=== PATIENT | female | born 1960 | race Caucasian/White ===

== ENCOUNTER 2021-10-25 18:57 | Inpatient (IN) ==
[2021-10-25 20:24] LABS: Basophils # 0.1 K/mcL (0.0-0.2); Basophils % 0.5 %; Eosinophils # 0.2 K/mcL (0.0-0.6); Eosinophils % 2.3 %; Hematocrit 32.2 % (35.3-44.9); Hemoglobin 10.1 g/dL (11.5-15.4); Immature Granulocytes % 0.6 % (0-4); Lymphocytes # 1.4 K/mcL (0.6-4.6); Lymphocytes % 13.4 %; Mean Corpuscular HGB Conc 31.4 g/dL (31.6-35.5); Mean Corpuscular Hemoglobin 29.3 pg (28.0-33.3); Mean Corpuscular Volume 93.3 fL (83.0-100.0); Mean Platelet Volume 9.8 fL (9.4-12.4); Monocytes # 0.6 K/mcL (0.0-1.3); Monocytes % 5.5 %; Neutrophils # 7.8 K/mcL (1.6-8.9); Platelet Count 277 K/mcL (140-400); Red Blood Count 3.45 M/mcL (3.82-4.97); Red Cell Distribution Width 15.5 % (11.5-14.5); Segmented Neutrophils % 77.7 %; White Blood Count 10.1 K/mcL (4.3-11.1)
[2021-10-25 20:37] LABS: Bilirubin,Urine Negative (Negative); Blood,Urine Negative (Negative); Clarity,Urine Clear (Clear); Color,Urine Yellow (Yellow); Glucose,Urine (UA) Normal (Normal); Ketones,Urine Negative (Negative); Leukocyte Esterase,Urine Negative (Negative); Nitrite,Urine Negative (Negative); PH,Urine 5.5 pH Units (5.0-8.0); Protein,Urine Negative (Neg-Trace); Urobilinogen,Urine Normal (Normal)
[2021-10-25 20:39] LABS: INR 1.4; Prothrombin Time 15.1 Seconds (9.4-12.1)
[2021-10-25 20:42] LABS: Activated Partial Thrombo Time 37.1 Seconds (26.0-36.0)
[2021-10-25 20:51] LABS: Troponin I < 0.03 ng/mL (< 0.04)
[2021-10-25 21:05] LABS: Alanine Aminotransferase 7 Units/L (7-52); Albumin 3.5 g/dL (3.5-5.7); Albumin/Globulin Ratio 1.3 (1.1-2.2); Alkaline Phosphatase 84 Units/L (34-104); Aspartate Amino Transferase 10 Units/L (13-39); BUN/Creatinine Ratio 20 (6-26); Bilirubin,Total 0.3 mg/dL (0.3-1.0); Blood Urea Nitrogen 22 mg/dL (8-23); Calcium 8.7 mg/dL (8.6-10.3); Carbon Dioxide 24 mEq/L (23-29); Chloride 105 mEq/L (98-107); Globulin 2.6 g/dL (2.4-3.5); Glucose 122 mg/dL (70-105); Magnesium 1.7 mg/dL (1.6-2.6); Osmolality,Calculated 289 (280-300); Phosphorous 3.5 mg/dL (2.7-4.5); Sodium 137 mEq/L (136-145); Total Protein 6.1 g/dL (6.4-8.9); eGFR For African Americans > 60 (> 60); eGFR For Non-African Americans 51 (> 60)
[2021-10-25] MEDS ORDERED: levoFLOXacin 750 MG/150 ML 750 MG/150 ML BAG IVPB SCH (21:40)
[2021-10-25] MEDS: 0.9 % Sodium Chloride 1,000 ML IVC SCH (21:49)
[2021-10-25] MEDS ORDERED: Naloxone 0.4 MG/ML INJ IVP PRN (22:48)
[2021-10-25] MEDS ORDERED: Fluticasone Propionate Nasal 50 MCG/SPRAY BOTTLE NS PRN (22:48)
[2021-10-25] MEDS ORDERED: 0.9 % Sodium Chloride 1,000 ML IVC SCH (22:48)
[2021-10-25] MEDS ORDERED: Nitroglycerin 0.4 MG TAB.SUBL SL PRN (22:48)
[2021-10-25] MEDS ORDERED: Loratadine 10 MG TABLET PO PRN (22:48)
[2021-10-25] MEDS: Acetaminophen 325 MG TABLET PO PRN (23:54)
[2021-10-25] MEDS: Ranolazine 500 MG TAB.ER.12H PO SCH (23:54)
[2021-10-25] MEDS: Isosorbide MONOnitrate (24 HR) 60 MG TAB.ER.24H PO SCH (23:55)
[2021-10-25] MEDS: levoFLOXacin 750 MG/150 ML 750 MG/150 ML BAG IVPB SCH (23:58)
[2021-10-26] MEDS: Ipratropium/Albuterol Neb 3 ML IH SCH ×2 (01:20→08:01)
[2021-10-26] MEDS: 0.9 % Sodium Chloride 1,000 ML IVC SCH (03:32)
[2021-10-26 07:00] LABS: Basophils % 0.5 %; Eosinophils # 0.3 K/mcL (0.0-0.6); Eosinophils % 3.2 %; Hematocrit 32.6 % (35.3-44.9); Hemoglobin 10.2 g/dL (11.5-15.4); Immature Granulocytes % 0.6 % (0-4); Lymphocytes # 1.2 K/mcL (0.6-4.6); Lymphocytes % 15.4 %; Mean Corpuscular HGB Conc 31.3 g/dL (31.6-35.5); Mean Corpuscular Hemoglobin 29.1 pg (28.0-33.3); Mean Corpuscular Volume 92.9 fL (83.0-100.0); Mean Platelet Volume 10.5 fL (9.4-12.4); Monocytes # 0.5 K/mcL (0.0-1.3); Monocytes % 6.4 %; Neutrophils # 5.8 K/mcL (1.6-8.9); Platelet Count 280 K/mcL (140-400); Red Blood Count 3.51 M/mcL (3.82-4.97); Red Cell Distribution Width 15.6 % (11.5-14.5); Segmented Neutrophils % 73.9 %; White Blood Count 7.9 K/mcL (4.3-11.1)
[2021-10-26 07:17] LABS: BUN/Creatinine Ratio 19 (6-26); Blood Urea Nitrogen 17 mg/dL (8-23); Calcium 8.5 mg/dL (8.6-10.3); Carbon Dioxide 24 mEq/L (23-29); Chloride 108 mEq/L (98-107); Glucose 89 mg/dL (70-105); Osmolality,Calculated 291 (280-300); Potassium 4.1 mEq/L (3.5-5.1); Sodium 140 mEq/L (136-145); eGFR For African Americans > 60 (> 60); eGFR For Non-African Americans > 60 (> 60)
[2021-10-26] MEDS ORDERED: Furosemide 20 MG TABLET PO SCH (09:00)
[2021-10-26] MEDS ORDERED: allopurinoL 100 MG TABLET PO SCH (09:00)
[2021-10-26] MEDS ORDERED: BuPROPion XL (24 HR) 150 MG TABLET PO SCH (09:00)
[2021-10-26] MEDS: Cyanocobalamin (B-12) 1,000 MCG TABLET PO SCH (09:35)
[2021-10-26] MEDS: FLUoxetine 20 MG CAPSULE PO SCH (09:36)
[2021-10-26] MEDS: Ranolazine 500 MG TAB.ER.12H PO SCH ×2 (09:36→20:03)
[2021-10-26] MEDS: Isosorbide MONOnitrate (24 HR) 60 MG TAB.ER.24H PO SCH ×2 (09:36→20:03)
[2021-10-26] MEDS: Ascorbic Acid 500 MG TABLET PO SCH (09:36)
[2021-10-26] MEDS: Aspirin 81 MG TAB.CHEW PO SCH (09:36)
[2021-10-26] MEDS: Acetaminophen 325 MG TABLET PO PRN (09:36)
[2021-10-26] MEDS: levoFLOXacin 750 MG/150 ML 750 MG/150 ML BAG IVPB SCH ×2 (10:02→21:57)
[2021-10-26] MEDS: Metoprolol XL (24 HR) Succ 50 MG TAB.ER.24H PO SCH (12:49)
[2021-10-26] MEDS ORDERED: levoFLOXacin 750 MG/150 ML 750 MG/150 ML BAG IVPB SCH (13:00)
[2021-10-26] MEDS: *HR* Rivaroxaban 10 MG TABLET PO SCH (16:24)
[2021-10-26] MEDS: Furosemide 20 MG TABLET PO SCH (16:24)
[2021-10-27] MEDS: Acetaminophen 325 MG TABLET PO PRN (03:10)
[2021-10-27 07:22] LABS: Basophils # 0.1 K/mcL (0.0-0.2); Basophils % 0.8 %; Eosinophils # 0.2 K/mcL (0.0-0.6); Eosinophils % 2.9 %; Hematocrit 32.9 % (35.3-44.9); Hemoglobin 10.4 g/dL (11.5-15.4); Immature Granulocytes % 0.7 % (0-4); Lymphocytes # 1.3 K/mcL (0.6-4.6); Lymphocytes % 17.7 %; Mean Corpuscular HGB Conc 31.6 g/dL (31.6-35.5); Mean Corpuscular Hemoglobin 29.2 pg (28.0-33.3); Mean Corpuscular Volume 92.4 fL (83.0-100.0); Mean Platelet Volume 10.4 fL (9.4-12.4); Monocytes # 0.5 K/mcL (0.0-1.3); Monocytes % 7.4 %; Platelet Count 281 K/mcL (140-400); Red Blood Count 3.56 M/mcL (3.82-4.97); Red Cell Distribution Width 15.4 % (11.5-14.5); Segmented Neutrophils % 70.5 %; White Blood Count 7.2 K/mcL (4.3-11.1)
[2021-10-27 08:12] LABS: BUN/Creatinine Ratio 17 (6-26); Blood Urea Nitrogen 15 mg/dL (8-23); Calcium 8.8 mg/dL (8.6-10.3); Carbon Dioxide 26 mEq/L (23-29); Chloride 106 mEq/L (98-107); Glucose 84 mg/dL (70-105); Magnesium 1.8 mg/dL (1.6-2.6); Osmolality,Calculated 288 (280-300); Potassium 4.1 mEq/L (3.5-5.1); Sodium 139 mEq/L (136-145); eGFR For African Americans > 60 (> 60); eGFR For Non-African Americans > 60 (> 60)
[2021-10-27] MEDS: Ascorbic Acid 500 MG TABLET PO SCH (10:37)
[2021-10-27] MEDS: Isosorbide MONOnitrate (24 HR) 60 MG TAB.ER.24H PO SCH ×2 (10:38→20:14)
[2021-10-27] MEDS: FLUoxetine 20 MG CAPSULE PO SCH (10:38)
[2021-10-27] MEDS: Ranolazine 500 MG TAB.ER.12H PO SCH ×2 (10:38→20:14)
[2021-10-27] MEDS: Aspirin 81 MG TAB.CHEW PO SCH (10:38)
[2021-10-27] MEDS: Furosemide 20 MG TABLET PO SCH ×2 (10:39→17:31)
[2021-10-27] MEDS: Metoprolol XL (24 HR) Succ 50 MG TAB.ER.24H PO SCH (10:39)
[2021-10-27] MEDS: Cyanocobalamin (B-12) 1,000 MCG TABLET PO SCH (10:39)
[2021-10-27] MEDS: *HR* Rivaroxaban 10 MG TABLET PO SCH (17:31)
[2021-10-27] MEDS: levoFLOXacin 750 MG/150 ML 750 MG/150 ML BAG IVPB SCH (21:49)
[2021-10-28 08:15] LABS: Basophils # 0.1 K/mcL (0.0-0.2); Basophils % 0.6 %; Eosinophils # 0.2 K/mcL (0.0-0.6); Eosinophils % 2.3 %; Hematocrit 39.2 % (35.3-44.9); Hemoglobin 12.2 g/dL (11.5-15.4); Immature Granulocytes % 0.5 % (0-4); Lymphocytes # 1.3 K/mcL (0.6-4.6); Lymphocytes % 16.6 %; Mean Corpuscular HGB Conc 31.1 g/dL (31.6-35.5); Mean Corpuscular Hemoglobin 29.1 pg (28.0-33.3); Mean Corpuscular Volume 93.6 fL (83.0-100.0); Mean Platelet Volume 10.3 fL (9.4-12.4); Monocytes # 0.5 K/mcL (0.0-1.3); Monocytes % 5.8 %; Neutrophils # 5.8 K/mcL (1.6-8.9); Platelet Count 300 K/mcL (140-400); Red Blood Count 4.19 M/mcL (3.82-4.97); Red Cell Distribution Width 15.2 % (11.5-14.5); Segmented Neutrophils % 74.2 %; White Blood Count 7.8 K/mcL (4.3-11.1)
[2021-10-28 08:52] LABS: BUN/Creatinine Ratio 16 (6-26); Blood Urea Nitrogen 14 mg/dL (8-23); Calcium 9.2 mg/dL (8.6-10.3); Carbon Dioxide 27 mEq/L (23-29); Chloride 103 mEq/L (98-107); Glucose 95 mg/dL (70-105); Osmolality,Calculated 286 (280-300); Sodium 138 mEq/L (136-145); eGFR For African Americans > 60 (> 60); eGFR For Non-African Americans > 60 (> 60)
[2021-10-28] MEDS: Cyanocobalamin (B-12) 1,000 MCG TABLET PO SCH (10:25)
[2021-10-28] MEDS: Metoprolol XL (24 HR) Succ 50 MG TAB.ER.24H PO SCH (10:25)
[2021-10-28] MEDS: FLUoxetine 20 MG CAPSULE PO SCH (10:25)
[2021-10-28] MEDS: Furosemide 20 MG TABLET PO SCH ×2 (10:25→17:57)
[2021-10-28] MEDS: Isosorbide MONOnitrate (24 HR) 60 MG TAB.ER.24H PO SCH ×2 (10:26→22:38)
[2021-10-28] MEDS: Ascorbic Acid 500 MG TABLET PO SCH (10:26)
[2021-10-28] MEDS: Ranolazine 500 MG TAB.ER.12H PO SCH ×2 (10:26→22:37)
[2021-10-28] MEDS: Aspirin 81 MG TAB.CHEW PO SCH (10:26)
[2021-10-28] MEDS: Acetaminophen 325 MG TABLET PO PRN (11:47)
[2021-10-28] MEDS: *HR* Rivaroxaban 10 MG TABLET PO SCH (17:57)
[2021-10-29] MEDS: levoFLOXacin 750 MG/150 ML 750 MG/150 ML BAG IVPB SCH (01:27)
[2021-10-29 07:41] LABS: Basophils % 0.6 %; Eosinophils # 0.2 K/mcL (0.0-0.6); Eosinophils % 2.6 %; Hemoglobin 10.9 g/dL (11.5-15.4); Immature Granulocytes % 0.8 % (0-4); Lymphocytes # 1.1 K/mcL (0.6-4.6); Lymphocytes % 16.5 %; Mean Corpuscular HGB Conc 31.1 g/dL (31.6-35.5); Mean Corpuscular Hemoglobin 28.8 pg (28.0-33.3); Mean Corpuscular Volume 92.3 fL (83.0-100.0); Mean Platelet Volume 10.3 fL (9.4-12.4); Monocytes # 0.5 K/mcL (0.0-1.3); Monocytes % 7.9 %; Neutrophils # 4.6 K/mcL (1.6-8.9); Platelet Count 259 K/mcL (140-400); Red Blood Count 3.79 M/mcL (3.82-4.97); Red Cell Distribution Width 15.1 % (11.5-14.5); Segmented Neutrophils % 71.6 %; White Blood Count 6.5 K/mcL (4.3-11.1)
[2021-10-29 07:53] LABS: BUN/Creatinine Ratio 21 (6-26); Blood Urea Nitrogen 17 mg/dL (8-23); Calcium 8.7 mg/dL (8.6-10.3); Carbon Dioxide 28 mEq/L (23-29); Chloride 104 mEq/L (98-107); Glucose 97 mg/dL (70-105); Osmolality,Calculated 289 (280-300); Potassium 3.8 mEq/L (3.5-5.1); Sodium 139 mEq/L (136-145); eGFR For African Americans > 60 (> 60); eGFR For Non-African Americans > 60 (> 60)
[2021-10-29] MEDS: Furosemide 20 MG TABLET PO SCH ×2 (08:38→15:58)
[2021-10-29] MEDS: Doxycycline 100 MG CAPSULE PO SCH ×2 (08:38→20:47)
[2021-10-29] MEDS: Ascorbic Acid 500 MG TABLET PO SCH (08:39)
[2021-10-29] MEDS: Cyanocobalamin (B-12) 1,000 MCG TABLET PO SCH (08:39)
[2021-10-29] MEDS: Aspirin 81 MG TAB.CHEW PO SCH (08:39)
[2021-10-29] MEDS: Acetaminophen 325 MG TABLET PO PRN ×2 (08:39→15:58)
[2021-10-29] MEDS: Metoprolol XL (24 HR) Succ 50 MG TAB.ER.24H PO SCH (08:40)
[2021-10-29] MEDS: Ranolazine 500 MG TAB.ER.12H PO SCH ×2 (08:40→20:48)
[2021-10-29] MEDS: Isosorbide MONOnitrate (24 HR) 60 MG TAB.ER.24H PO SCH ×2 (08:40→20:47)
[2021-10-29] MEDS: FLUoxetine 20 MG CAPSULE PO SCH (08:41)
[2021-10-29] MEDS ORDERED: Ergocalciferol (VIT D2) 50,000 UNIT (1.25MG) CAP PO SCH (09:00)
[2021-10-29] MEDS ORDERED: Lactobacillus 1 EACH CAP.SPRINK PO SCH (09:00)
[2021-10-29] MEDS: *HR* Rivaroxaban 10 MG TABLET PO SCH (15:58)
[2021-10-29 18:52] VITALS: BP 118/71; PULSE 69; TEMP 98
[2021-10-29 21:46] VITALS: RESP 16; O2SAT 95
== END 2021-10-29 11:40 | disposition other institution (70) | DRG 603 ==
LOC: INPPIK 18:57 → EMEROOPIK 18:57 → INPPIK 22:30
PROVIDERS: ADMIT Student in an Organized Health Care Education/Training Program; ATTEND Family Medicine

== ENCOUNTER 2021-10-29 22:13 | Observation (INO) ==
[2021-10-29] MEDS ORDERED: Nitroglycerin 0.4 MG TAB.SUBL SL PRN (22:24)
[2021-10-29] MEDS ORDERED: Albuterol 2.5 MG/3 ML NEBULIZER IH PRN (22:24)
[2021-10-29] MEDS ORDERED: Fluticasone Propionate Nasal 50 MCG/SPRAY BOTTLE NS PRN (22:24)
[2021-10-29] MEDS ORDERED: Loratadine 10 MG TABLET PO PRN (22:24)
[2021-10-30 07:19] LABS: Basophils # 0.1 K/mcL (0.0-0.2); Basophils % 0.9 %; Eosinophils # 0.2 K/mcL (0.0-0.6); Eosinophils % 3.1 %; Hemoglobin 10.7 g/dL (11.5-15.4); Immature Granulocytes % 0.5 % (0-4); Lymphocytes # 1.1 K/mcL (0.6-4.6); Lymphocytes % 18.8 %; Mean Corpuscular HGB Conc 30.6 g/dL (31.6-35.5); Mean Corpuscular Hemoglobin 28.6 pg (28.0-33.3); Mean Corpuscular Volume 93.6 fL (83.0-100.0); Mean Platelet Volume 10.4 fL (9.4-12.4); Monocytes # 0.5 K/mcL (0.0-1.3); Monocytes % 8.8 %; Neutrophils # 3.9 K/mcL (1.6-8.9); Platelet Count 237 K/mcL (140-400); Red Blood Count 3.74 M/mcL (3.82-4.97); Red Cell Distribution Width 15.1 % (11.5-14.5); Segmented Neutrophils % 67.9 %; White Blood Count 5.8 K/mcL (4.3-11.1)
[2021-10-30 07:45] LABS: BUN/Creatinine Ratio 23 (6-26); Blood Urea Nitrogen 18 mg/dL (8-23); Calcium 8.7 mg/dL (8.6-10.3); Carbon Dioxide 28 mEq/L (23-29); Chloride 106 mEq/L (98-107); Glucose 98 mg/dL (70-105); Osmolality,Calculated 292 (280-300); Potassium 4.1 mEq/L (3.5-5.1); Sodium 140 mEq/L (136-145); eGFR For African Americans > 60 (> 60); eGFR For Non-African Americans > 60 (> 60)
[2021-10-30] MEDS: Budesonide/Formoterol 160/4.5 1 PUFF INH IH SCH ×2 (08:37→21:07)
[2021-10-30] MEDS: Furosemide 20 MG TABLET PO SCH (09:54)
[2021-10-30] MEDS: Metoprolol XL (24 HR) Succ 50 MG TAB.ER.24H PO SCH (09:54)
[2021-10-30] MEDS: DilTIAZem CD (24hr) 120 MG CAP.ER.24H PO SCH (09:54)
[2021-10-30] MEDS: Isosorbide MONOnitrate (24 HR) 60 MG TAB.ER.24H PO SCH ×2 (09:54→20:35)
[2021-10-30] MEDS: FLUoxetine 20 MG CAPSULE PO SCH (09:54)
[2021-10-30] MEDS: Aspirin 81 MG TAB.CHEW PO SCH (09:54)
[2021-10-30] MEDS: Ranolazine 500 MG TAB.ER.12H PO SCH ×2 (09:54→20:34)
[2021-10-30] MEDS: Doxycycline 100 MG CAPSULE PO SCH ×2 (09:55→20:34)
[2021-10-30] MEDS: Ascorbic Acid 500 MG TABLET PO SCH (09:55)
[2021-10-30] MEDS: Cyanocobalamin (B-12) 1,000 MCG TABLET PO SCH (09:55)
[2021-10-30] MEDS: *HR* Rivaroxaban 10 MG TABLET PO SCH (17:00)
[2021-10-31] MEDS: Metoprolol XL (24 HR) Succ 50 MG TAB.ER.24H PO SCH (08:26)
[2021-10-31] MEDS: Isosorbide MONOnitrate (24 HR) 60 MG TAB.ER.24H PO SCH ×2 (08:26→21:45)
[2021-10-31] MEDS: Aspirin 81 MG TAB.CHEW PO SCH (08:26)
[2021-10-31] MEDS: Ranolazine 500 MG TAB.ER.12H PO SCH ×2 (08:26→21:45)
[2021-10-31] MEDS: FLUoxetine 20 MG CAPSULE PO SCH (08:26)
[2021-10-31] MEDS: DilTIAZem CD (24hr) 120 MG CAP.ER.24H PO SCH (08:26)
[2021-10-31] MEDS: Cyanocobalamin (B-12) 1,000 MCG TABLET PO SCH (08:26)
[2021-10-31] MEDS: Ascorbic Acid 500 MG TABLET PO SCH (08:26)
[2021-10-31] MEDS: Furosemide 20 MG TABLET PO SCH (08:27)
[2021-10-31] MEDS: Doxycycline 100 MG CAPSULE PO SCH ×2 (08:27→21:44)
[2021-10-31] MEDS ORDERED: Acetaminophen 325 MG TABLET PO PRN (08:35)
[2021-10-31] MEDS: Budesonide/Formoterol 160/4.5 1 PUFF INH IH SCH ×2 (08:45→20:52)
[2021-10-31] MEDS ORDERED: Ergocalciferol (VIT D2) 50,000 UNIT (1.25MG) CAP PO SCH (09:00)
[2021-10-31] MEDS ORDERED: Ondansetron ODT 4 MG TAB.RAPDIS SL PRN (14:46)
[2021-10-31] MEDS: *HR* Rivaroxaban 10 MG TABLET PO SCH (16:02)
[2021-11-01 07:00] VITALS: BP 136/78; PULSE 73; RESP 18; TEMP 97.6
[2021-11-01] MEDS ORDERED: cephALEXin 500 MG CAPSULE PO ONE (08:04)
[2021-11-01] MEDS: Budesonide/Formoterol 160/4.5 1 PUFF INH IH SCH (08:18)
[2021-11-01 08:20] VITALS: O2SAT 98
[2021-11-01] MEDS: FLUoxetine 20 MG CAPSULE PO SCH (08:39)
[2021-11-01] MEDS: Cyanocobalamin (B-12) 1,000 MCG TABLET PO SCH (08:39)
[2021-11-01] MEDS: Furosemide 20 MG TABLET PO SCH (08:39)
[2021-11-01] MEDS: Aspirin 81 MG TAB.CHEW PO SCH (08:39)
[2021-11-01] MEDS: Metoprolol XL (24 HR) Succ 50 MG TAB.ER.24H PO SCH (08:39)
[2021-11-01] MEDS: Ascorbic Acid 500 MG TABLET PO SCH (08:39)
[2021-11-01] MEDS: Ranolazine 500 MG TAB.ER.12H PO SCH (08:39)
[2021-11-01] MEDS: DilTIAZem CD (24hr) 120 MG CAP.ER.24H PO SCH (08:39)
[2021-11-01] MEDS: Doxycycline 100 MG CAPSULE PO SCH (08:39)
[2021-11-01] MEDS: Isosorbide MONOnitrate (24 HR) 60 MG TAB.ER.24H PO SCH (08:39)
== END 2021-11-01 13:11 | disposition home health service (06) ==
LOC: INPPIK
PROVIDERS: ADMIT Family Medicine; ATTEND Family Medicine

== ENCOUNTER 2022-01-20 18:17 | Inpatient (IN) ==
[2022-01-20 19:23] LABS: Eosinophils # 0.4 K/mcL (0.0-0.6); Hemoglobin 9.6 g/dL (11.5-15.4); Mean Corpuscular Hemoglobin 29.5 pg (28.0-33.3); Mean Corpuscular Volume 95.4 fL (83.0-100.0); Mean Platelet Volume 10.2 fL (9.4-12.4); Platelet Count 449 K/mcL (140-400); Red Blood Count 3.25 M/mcL (3.82-4.97); Red Cell Distribution Width 16.1 % (11.5-14.5); White Blood Count 10.7 K/mcL (4.3-11.1)
[2022-01-20 19:41] LABS: Calcium 8.8 mg/dL (8.6-10.3)
[2022-01-20 19:53] LABS: Lymphocytes # 2.4 K/mcL (0.6-4.6); Monocytes # 0.4 K/mcL (0.0-1.3); Neutrophils # 7.1 K/mcL (1.6-8.9); Platelet Estimate Increased (Normal)
[2022-01-20 19:55] LABS: Anisocytosis 1+ (Not Present); Toxic Vacuolation Present (Not Present)
[2022-01-20] MEDS ORDERED: Cefepime HCl 1,000 MG in 0.9 % Sodium Chloride 10 ML IVP SCH (20:29)
[2022-01-20] MEDS ORDERED: *HR* HYDROmorphone (PF) 1 MG/ML SYRINGE IVP ONE (21:08)
[2022-01-20] MEDS ORDERED: Ondansetron ODT 4 MG TAB.RAPDIS SL PRN (23:57)
[2022-01-20] MEDS ORDERED: Nitroglycerin 0.4 MG TAB.SUBL SL PRN (23:57)
[2022-01-20] MEDS ORDERED: Naloxone 0.4 MG/ML INJ IVP PRN (23:57)
[2022-01-21] MEDS: Cefepime HCl 1,000 MG in 0.9 % Sodium Chloride 10 ML IVP SCH ×3 (06:50→21:44)
[2022-01-21 06:52] LABS: Basophils # 0.1 K/mcL (0.0-0.2); Basophils % 0.5 %; Eosinophils # 0.4 K/mcL (0.0-0.6); Eosinophils % 3.9 %; Hematocrit 27.9 % (35.3-44.9); Hemoglobin 8.7 g/dL (11.5-15.4); Immature Granulocytes % 4.3 % (0-4); Lymphocytes # 1.5 K/mcL (0.6-4.6); Lymphocytes % 16.7 %; Mean Corpuscular HGB Conc 31.2 g/dL (31.6-35.5); Mean Corpuscular Hemoglobin 29.4 pg (28.0-33.3); Mean Corpuscular Volume 94.3 fL (83.0-100.0); Monocytes # 0.5 K/mcL (0.0-1.3); Monocytes % 5.9 %; Neutrophils # 6.3 K/mcL (1.6-8.9); Platelet Count 442 K/mcL (140-400); Red Blood Count 2.96 M/mcL (3.82-4.97); Segmented Neutrophils % 68.7 %; White Blood Count 9.2 K/mcL (4.3-11.1)
[2022-01-21 07:19] LABS: BUN/Creatinine Ratio 16 (6-26); Blood Urea Nitrogen 12 mg/dL (8-23); Calcium 8.6 mg/dL (8.6-10.3); Carbon Dioxide 28 mEq/L (23-29); Chloride 104 mEq/L (98-107); Chol/HDL Ratio 6.3 (0-4.9); Cholesterol 190 mg/dL (< 200); Glucose 88 mg/dL (70-105); HDL Cholesterol 30 mg/dL (40-59); LDL Cholesterol,Calculated 127 mg/dL (< 100); Osmolality,Calculated 287 (280-300); Potassium 4.1 mEq/L (3.5-5.1); Sodium 139 mEq/L (136-145); Triglycerides 167 mg/dL (< 150)
[2022-01-21] MEDS: Budesonide/Formoterol 160/4.5 1 PUFF INH IH SCH ×2 (08:56→20:49)
[2022-01-21] MEDS ORDERED: Furosemide 20 MG TABLET PO SCH ×2 (09:00→17:00)
[2022-01-21] MEDS: Isosorbide MONOnitrate (24 HR) 60 MG TAB.ER.24H PO SCH ×2 (10:40→20:01)
[2022-01-21] MEDS: *HR* Rivaroxaban 10 MG TABLET PO SCH (10:41)
[2022-01-21] MEDS: FLUoxetine 20 MG CAPSULE PO SCH (10:41)
[2022-01-21] MEDS: Ranolazine 500 MG TAB.ER.12H PO SCH ×2 (10:41→20:01)
[2022-01-21] MEDS: Aspirin 81 MG TAB.CHEW PO SCH (10:41)
[2022-01-21] MEDS: DilTIAZem CD (24hr) 120 MG CAP.ER.24H PO SCH (10:41)
[2022-01-21] MEDS: Metoprolol XL (24 HR) Succ 50 MG TAB.ER.24H PO SCH (10:41)
[2022-01-21] MEDS: Furosemide 20 MG TABLET PO SCH ×2 (10:54→17:34)
[2022-01-21 11:36] LABS: Uric Acid 7.1 mg/dL (2.3-7.6)
[2022-01-21] MEDS: Acetaminophen 325 MG TABLET PO PRN (18:52)
[2022-01-22] MEDS ORDERED: Albuterol 2.5 MG/3 ML NEBULIZER IH PRN (02:00)
[2022-01-22] MEDS: Cefepime HCl 1,000 MG in 0.9 % Sodium Chloride 10 ML IVP SCH ×3 (05:38→21:09)
[2022-01-22 07:20] LABS: Basophils # 0.1 K/mcL (0.0-0.2); Basophils % 0.6 %; Eosinophils # 0.3 K/mcL (0.0-0.6); Eosinophils % 2.9 %; Hematocrit 27.7 % (35.3-44.9); Hemoglobin 8.5 g/dL (11.5-15.4); Immature Granulocytes % 2.8 % (0-4); Lymphocytes # 1.6 K/mcL (0.6-4.6); Lymphocytes % 17.2 %; Mean Corpuscular HGB Conc 30.7 g/dL (31.6-35.5); Mean Corpuscular Volume 94.5 fL (83.0-100.0); Mean Platelet Volume 10.2 fL (9.4-12.4); Monocytes # 0.6 K/mcL (0.0-1.3); Monocytes % 6.5 %; Neutrophils # 6.4 K/mcL (1.6-8.9); Platelet Count 441 K/mcL (140-400); Red Blood Count 2.93 M/mcL (3.82-4.97); Red Cell Distribution Width 16.4 % (11.5-14.5); White Blood Count 9.1 K/mcL (4.3-11.1)
[2022-01-22 07:31] LABS: Calcium 8.8 mg/dL (8.6-10.3); Potassium 4.4 mEq/L (3.5-5.1)
[2022-01-22] MEDS: FLUoxetine 20 MG CAPSULE PO SCH (08:29)
[2022-01-22] MEDS: DilTIAZem CD (24hr) 120 MG CAP.ER.24H PO SCH (08:30)
[2022-01-22] MEDS: *HR* Rivaroxaban 10 MG TABLET PO SCH (08:30)
[2022-01-22] MEDS: Isosorbide MONOnitrate (24 HR) 60 MG TAB.ER.24H PO SCH ×2 (08:30→21:09)
[2022-01-22] MEDS: Aspirin 81 MG TAB.CHEW PO SCH (08:30)
[2022-01-22] MEDS: Furosemide 20 MG TABLET PO SCH ×2 (08:30→19:19)
[2022-01-22] MEDS: Metoprolol XL (24 HR) Succ 50 MG TAB.ER.24H PO SCH (08:30)
[2022-01-22] MEDS: Ranolazine 500 MG TAB.ER.12H PO SCH ×2 (08:31→21:08)
[2022-01-22] MEDS: Budesonide/Formoterol 160/4.5 1 PUFF INH IH SCH ×2 (09:36→21:39)
[2022-01-22] MEDS: Acetaminophen 325 MG TABLET PO PRN (14:10)
[2022-01-23] MEDS: Cefepime HCl 1,000 MG in 0.9 % Sodium Chloride 10 ML IVP SCH ×3 (05:24→23:29)
[2022-01-23] MEDS: Furosemide 20 MG TABLET PO SCH ×2 (08:56→16:04)
[2022-01-23] MEDS: Metoprolol XL (24 HR) Succ 50 MG TAB.ER.24H PO SCH (08:56)
[2022-01-23] MEDS: DilTIAZem CD (24hr) 120 MG CAP.ER.24H PO SCH (08:56)
[2022-01-23] MEDS: FLUoxetine 20 MG CAPSULE PO SCH (08:56)
[2022-01-23] MEDS: Isosorbide MONOnitrate (24 HR) 60 MG TAB.ER.24H PO SCH ×2 (08:56→20:41)
[2022-01-23] MEDS: Aspirin 81 MG TAB.CHEW PO SCH (08:56)
[2022-01-23] MEDS: Ranolazine 500 MG TAB.ER.12H PO SCH ×2 (08:57→20:41)
[2022-01-23] MEDS: *HR* Rivaroxaban 10 MG TABLET PO SCH (08:57)
[2022-01-23] MEDS: Budesonide/Formoterol 160/4.5 1 PUFF INH IH SCH ×2 (09:11→19:59)
[2022-01-24] MEDS: Cefepime HCl 1,000 MG in 0.9 % Sodium Chloride 10 ML IVP SCH ×3 (07:35→20:20)
[2022-01-24] MEDS: Metoprolol XL (24 HR) Succ 50 MG TAB.ER.24H PO SCH (09:09)
[2022-01-24] MEDS: Aspirin 81 MG TAB.CHEW PO SCH (09:09)
[2022-01-24] MEDS: Isosorbide MONOnitrate (24 HR) 60 MG TAB.ER.24H PO SCH ×2 (09:09→20:06)
[2022-01-24] MEDS: Ranolazine 500 MG TAB.ER.12H PO SCH ×2 (09:09→20:06)
[2022-01-24] MEDS: Furosemide 20 MG TABLET PO SCH ×2 (09:09→15:06)
[2022-01-24] MEDS: *HR* Rivaroxaban 10 MG TABLET PO SCH (09:09)
[2022-01-24] MEDS: FLUoxetine 20 MG CAPSULE PO SCH (09:09)
[2022-01-24] MEDS: DilTIAZem CD (24hr) 120 MG CAP.ER.24H PO SCH (09:09)
[2022-01-24] MEDS: Budesonide/Formoterol 160/4.5 1 PUFF INH IH SCH ×2 (10:46→22:09)
[2022-01-24] MEDS: Acetaminophen 325 MG TABLET PO PRN (15:03)
[2022-01-25] MEDS: Cefepime HCl 1,000 MG in 0.9 % Sodium Chloride 10 ML IVP SCH ×3 (05:38→21:14)
[2022-01-25] MEDS: Acetaminophen 325 MG TABLET PO PRN (09:10)
[2022-01-25] MEDS: Aspirin 81 MG TAB.CHEW PO SCH (09:11)
[2022-01-25] MEDS: Ranolazine 500 MG TAB.ER.12H PO SCH ×2 (09:11→21:05)
[2022-01-25] MEDS: *HR* Rivaroxaban 10 MG TABLET PO SCH (09:11)
[2022-01-25] MEDS: Metoprolol XL (24 HR) Succ 50 MG TAB.ER.24H PO SCH (09:11)
[2022-01-25] MEDS: DilTIAZem CD (24hr) 120 MG CAP.ER.24H PO SCH (09:11)
[2022-01-25] MEDS: FLUoxetine 20 MG CAPSULE PO SCH (09:11)
[2022-01-25] MEDS: Furosemide 20 MG TABLET PO SCH ×2 (09:11→17:35)
[2022-01-25] MEDS: Isosorbide MONOnitrate (24 HR) 60 MG TAB.ER.24H PO SCH ×2 (09:12→21:06)
[2022-01-25] MEDS: Budesonide/Formoterol 160/4.5 1 PUFF INH IH SCH ×2 (10:10→21:59)
[2022-01-26] MEDS: Cefepime HCl 1,000 MG in 0.9 % Sodium Chloride 10 ML IVP SCH (08:06)
[2022-01-26] MEDS: Acetaminophen 325 MG TABLET PO PRN (08:06)
[2022-01-26 10:14] VITALS: PULSE 73; TEMP 98.4
[2022-01-26 10:17] VITALS: BP 113/71
[2022-01-26] MEDS: Aspirin 81 MG TAB.CHEW PO SCH (10:17)
[2022-01-26] MEDS: DilTIAZem CD (24hr) 120 MG CAP.ER.24H PO SCH (10:17)
[2022-01-26] MEDS: Ranolazine 500 MG TAB.ER.12H PO SCH (10:17)
[2022-01-26] MEDS: Metoprolol XL (24 HR) Succ 50 MG TAB.ER.24H PO SCH (10:17)
[2022-01-26] MEDS: Furosemide 20 MG TABLET PO SCH (10:18)
[2022-01-26] MEDS: FLUoxetine 20 MG CAPSULE PO SCH (10:18)
[2022-01-26] MEDS: Isosorbide MONOnitrate (24 HR) 60 MG TAB.ER.24H PO SCH (10:19)
[2022-01-26] MEDS: *HR* Rivaroxaban 10 MG TABLET PO SCH (10:19)
[2022-01-26] MEDS: Budesonide/Formoterol 160/4.5 1 PUFF INH IH SCH (11:24)
[2022-01-26 13:04] VITALS: RESP 16; O2SAT 97
== END 2022-01-26 14:30 | disposition home or self-care (01) | DRG 603 ==
LOC: INPPIK 18:17 → EMEROOPIK 18:17 → SUATTDRO 21:15 → INPPIK 23:50
PROVIDERS: ADMIT Internal Medicine; ATTEND Nurse Practitioner